=== PATIENT | female | born 1995 | race Caucasian/White ===

== ENCOUNTER 2017-08-01 11:44 | Emergency (ER) | payer MEDICAID ==
[2017-08-01 12:08] VITALS: BMI 21.1
[2017-08-01 12:11] VITALS: TEMP 98.4; O2SAT 100
--- NOTE | 2017-08-01 13:55 | ED PDOC ---
Arrival/HPI - General Chief Complaint: Abnormal Skin Integrity Time Seen by Provider: 08/01/17 12:33 Historian: Patient EM Caveat: Acuity of Condition - History of Present Illness Narrative History of Present Illness (Text): 08/01/17 13:45 Pt is a 22 yr old female who present to the ED with a right 5th digit infection that started 4 days ago after getting a paper cut on the pad of her finger. Pt also reports small, itchy vesicles on the side of the 5th digit. Denies chest pain and shortness of breath, fever, chills, n/v/d, back pain, numbness or change in muscle function. Pt has h/o eczema on her hands and arms. 08/01/17 15:46 Time/Duration: < week Symptom Onset: Gradual Symptom Course: Unchanged Quality: Pressure Severity Level: 3 Activities at Onset: Rest Context: Home Past Medical History - Provider Review Nursing Documentation Reviewed: Yes - Travel History Have you recently traveled outside [place] w/in the past 3 mons?: No - Infectious Disease Hx of Infectious Diseases: None - Psychiatric Hx Substance Use: No - Anesthesia Hx Anesthesia: No Hx Anesthesia Reactions: No Hx Malignant Hyperthermia: No - Suicidal Assessment Feels Threatened In Home Enviroment: No Family/Social History - Physician Review Nursing Documentation Reviewed: Yes Family/Social History: Unknown Family HX Smoking Status: Never Smoked Hx Alcohol Use: No Hx Substance Use: No Allergies/Home Meds Allergies/Adverse Reactions: Allergies No Known Allergies Allergy (Verified 11/27/14 12:05) Review of Systems - Review of Systems Constitutional: Normal Eyes: Normal ENT: Normal Respiratory: Normal Cardiovascular: Normal Gastrointestinal: Normal Genitourinary Female: Normal Musculoskeletal: Normal Skin: Normal, Abscess (right 5th digit swelling with pus) Neurological: Normal Endocrine: Normal Hemo/Lymphatic: Normal Psychiatric: Normal Physical Exam Vital Signs Reviewed: Yes Vital Signs Temp Pulse Resp BP Pulse Ox 08/01/17 15:27 68 18 130/71 100 08/01/17 11:45 98.4 F 70 16 132/74 100 Temperature: Afebrile Blood Pressure: Normal Pulse: Regular Respiratory Rate: Normal Appearance: Positive for: Well-Appearing, Non-Toxic, Comfortable Pain Distress: None Mental Status: Positive for: Alert and Oriented X 3 - Systems Exam Head: Present: Atraumatic, Normocephalic Mouth: Present: Moist Mucous Membranes Nose (External): Present: Atraumatic Nose (Internal): Present: Normal Inspection Respiratory/Chest: Present: Good Air Exchange. No: Respiratory Distress, Accessory Muscle Use Cardiovascular: Present: Normal S1, S2. No: Murmurs Abdomen: Present: Normal Bowel Sounds. No: Tenderness, Distention, Peritoneal Signs Back: Present: Normal Inspection Upper Extremity: Present: Normal Inspection. No: Cyanosis, Edema Lower Extremity: Present: Normal Inspection. No: Edema Neurological: Present: GCS=15, CN II-XII Intact, Speech Normal Skin: Present: Warm, Dry, Rashes ( small vesicles on the right 5th digit; tinea pedis on the left foot), Normal Color, Abscess (paronychia of the right 5th finger (pinky)) Psychiatric: Present: Alert, Oriented x 3, Normal Insight, Normal Concentration Medical Decision Making ED Course and Treatment: 08/01/17 13:55 Pt is a 22 yr old female who present to the ED with a right 5th digit infection that started 4 days ago after getting a paper cut on the pad of her finger. On exam, there is a small, healing superficial lesion on the 5th digit pad with small blister-like vesicles on the ulnar and radial aspects of the distal part of finger; swelling and hematoma with purulent material around the nail; motor and sensation intact of finger and the rest of the hand Plan I&D of the right 5th digit Assess and dispo 08/01/17 15:12 Digital block to the right 5th digit 18G needle was inserted along the lateral nail edge Swab was taken to assess for bacteria and Possible herpetic litzy vs eczema Performed by the emergency provider Indication: Paronychia Location: Right little finger Preparation: The area was prepped and draped in the usual sterile fashion and was cleansed with chlorhexadine~ Digital block with Lidocaine 1% was used for anesthesia.~ Procedure: ~The most fluctuant portion of the abscess was incised with a 18G needle. ~ Approximately 1 mL of purulent fluid was obtained.~ The abscess was packed.~ A dressing was applied and pt was instructed on how to care for the wound. ~ Post-Procedure: ~On exam the abscess is notably less fluctuant.~ The patient tolerated the procedure well, and there were no complications. Cultured: YES Discussed follow up with PMD in the next few days; and counseled on wound care at home; if worsening of pain or swelling, return to the ER for evaluation - Lab Interpretations Microbiology Results: Microbiology Results 08/01/17 15:20 Finger Gram Stain - Final 08/01/17 15:20 Finger Wound Culture - Preliminary No growth. Disposition/Present on Arrival - Present on Arrival Any Indicators Present on Arrival: Yes History of DVT/PE: No History of Uncontrolled Diabetes: No Urinary Catheter: No History of Decub. Ulcer: No History Surgical Site Infection Following: None - Disposition Have Diagnosis and Disposition been Completed?: Yes Diagnosis: Paronychia Disposition: HOME/ ROUTINE Disposition Time: 15:09 Patient Plan: Discharge Condition: GOOD Discharge Instructions (ExitCare): Paronychia (DC) Additional Instructions: Mary, thank you for letting us take care of you today. Your provider was ZACKERY Hodgson. You were treated for Paronychia. The emergency medical care you received today was directed at your acute symptoms. If you were prescribed any medication, please fill it and take as directed. It may take several days for your symptoms to resolve. Return to the Emergency Department if your symptoms worsen, do not improve, or if you have any other problems. Please contact your doctor or call one of the physicians/clinics you have been referred to that are listed on the Patient Visit Information form that is included in your discharge packet. Bring any paperwork you were given at discharge with you along with any medications you are taking to your follow up visit. Our treatment cannot replace ongoing medical care by a primary care provider (PCP) outside of the emergency department. Thank you for allowing the [facility] team to be part of your care today. If you had an STI test: It will take 48 hours for the results. Please call after 1 week if you have not heard back. Prescriptions: Cephalexin [Keflex] 500 mg PO Q6 5 Days #20 cap Ibuprofen [Motrin Tab] 400 mg PO Q6 #20 tab Referrals: [facility] Wasserman, [Non-Staff] - Follow up with primary Forms: [employer] (K[place]akh)
[2017-08-01 15:28] VITALS: BP 130/71; PULSE 68; RESP 18
== END 2017-08-01 15:30 | disposition home or self-care (01) ==
LOC: ED 11:44
DX: L03.011 Cellulitis of right finger (principal)

== ENCOUNTER 2017-10-16 10:33 | Emergency (ER) | payer MEDICAID, OTHER ==
[2017-10-16 10:33] VITALS: BMI 21.1
[2017-10-16] MEDS ORDERED: Hydrocortisone Val 0.2% Cr 15 GM TUBE TOP STA (11:03)
[2017-10-16 11:10] VITALS: BP 105/65; PULSE 80; RESP 16; TEMP 99; O2SAT 100
--- NOTE | 2017-10-16 11:25 | ED PDOC ---
Arrival/HPI - General Chief Complaint: Upper Extremity Problem/Injury Time Seen by Provider: 10/16/17 11:00 Historian: Patient - History of Present Illness Narrative History of Present Illness (Text): 10/16/17 11:16 22yo female with no pmhx who present with complaint of itchy right 5th finger . States I & D was done here 3months ago and no purulent discahrge was expressed. States she came back today because the area is itchy with rash and intermittent clear discharge from the finger. She denies pain, although the triage note records pain. She denies purulent discharge, redness, fever, chills, any other complaint. Past Medical History - Provider Review Nursing Documentation Reviewed: Yes - Infectious Disease Hx of Infectious Diseases: None - Reproductive Menopause: No - Cardiac Hx Cardiac Disorders: No - Psychiatric Hx Substance Use: No - Anesthesia Hx Anesthesia: No Hx Anesthesia Reactions: No Hx Malignant Hyperthermia: No - Suicidal Assessment Feels Threatened In Home Enviroment: No Family/Social History - Physician Review Nursing Documentation Reviewed: Yes Family/Social History: Unknown Family HX Smoking Status: Never Smoked Hx Alcohol Use: No Hx Substance Use: No Allergies/Home Meds Allergies/Adverse Reactions: Allergies No Known Allergies Allergy (Verified 10/16/17 11:03) Home Medications: Home Meds Medication Instructions Recorded Confirmed No Known Home Med 10/16/17 10/16/17 Review of Systems - Physician Review All systems were reviewed & negative as marked: Yes - Review of Systems Constitutional: Normal Eyes: Normal ENT: Normal Respiratory: Normal Cardiovascular: Normal Gastrointestinal: Normal Genitourinary Female: Normal Musculoskeletal: Normal Skin: Rash (Right 5th finger), Pruritis (Right 5th finger) Neurological: Normal Endocrine: Normal Hemo/Lymphatic: Normal Psychiatric: Normal Physical Exam Vital Signs Reviewed: Yes Vital Signs Temp Pulse Resp BP Pulse Ox 10/16/17 11:07 99 F 80 16 105/65 100 Temperature: Afebrile Blood Pressure: Normal Pulse: Regular Respiratory Rate: Normal Appearance: Positive for: Well-Appearing, Non-Toxic, Comfortable Pain Distress: None Mental Status: Positive for: Alert and Oriented X 3 - Systems Exam Head: Present: Atraumatic, Normocephalic Pupils: Present: PERRL Extroacular Muscles: Present: EOMI Conjunctiva: Present: Normal Mouth: Present: Moist Mucous Membranes Neck: Present: Normal Range of Motion Respiratory/Chest: Present: Clear to Auscultation, Good Air Exchange. No: Respiratory Distress, Accessory Muscle Use Cardiovascular: Present: Regular Rate and Rhythm, Normal S1, S2. No: Murmurs Abdomen: No: Tenderness, Distention, Peritoneal Signs Back: Present: Normal Inspection Upper Extremity: Present: Normal Inspection. No: Cyanosis, Edema Lower Extremity: Present: Normal Inspection. No: Edema Neurological: Present: GCS=15, CN II-XII Intact, Speech Normal Skin: Present: Warm, Dry, Rashes (Scaly macular rash noted on distal tuft of right 5th finger. No erythema. No tenderness to palpation. No crepitus. No purulent discharge. No swelling. FROM. NVI.), Normal Color Psychiatric: Present: Alert, Oriented x 3, Normal Insight, Normal Concentration Medical Decision Making - Medication Orders Current Medication Orders: Discontinued Medications Hydrocortisone Valerate (Westcort) 30 gm TOP ONCE STA Stop: 10/16/17 11:04 Disposition/Present on Arrival - Present on Arrival Any Indicators Present on Arrival: No History of DVT/PE: No History of Uncontrolled Diabetes: No Urinary Catheter: No History of Decub. Ulcer: No History Surgical Site Infection Following: None - Disposition Have Diagnosis and Disposition been Completed?: Yes Diagnosis: Rash Disposition: HOME/ ROUTINE Disposition Time: 11:30 Patient Plan: Discharge Condition: STABLE Discharge Instructions (ExitCare): Skin Rash Additional Instructions: Follow up with a [facility] End Finder Return to ED for any new or worsening symptoms Referrals: Aliyah Youngblood DO [Primary Care Provider] - Follow up with primary Maris Beebe MD [Staff Provider] - Follow up with primary
== END 2017-10-16 11:40 | disposition home or self-care (01) ==
LOC: ED 10:33
DX: R21 Rash and other nonspecific skin eruption (principal)